=== PATIENT | female | born 1985 | race Caucasian/White ===

== ENCOUNTER → 2016-11-18 | Outpatient (CLI) | payer BC ==
[2016-11-18 11:27] LABS: BASOPHILS # (AUTO) 0.02 10*3/UL; BASOPHILS % (AUTO) 0.2 % (0-1); EOSINOPHILS % (AUTO) 1.1 % (0-8); HEMATOCRIT 37.2 % (37.0-47.0); IMM GRAN % (AUTO) 0.1 % (0-5); IMM GRAN# (AUTO) 0.01 10*3/UL; LYMPHOCYTES % (AUTO) 21.1 % (10-50); MEAN CORPUSCULAR HEMOGLOBIN 29.9 PG (27-31); MEAN CORPUSCULAR HGB CONC 34.9 g/dL (33-37); MEAN PLATELET VOLUME 9.4 FL (7.4-12.2); MONOCYTES # (AUTO) 0.64 10*3/UL (0.3-0.8); MONOCYTES % (AUTO) 6.8 % (5-15); NEUTROPHILS # (AUTO) 6.71 10*3/UL; NEUTROPHILS % (AUTO) 70.7 % (50-80); RDW COEFFICIENT OF VARIATION 12.7 % (11.5-14.5); RED BLOOD COUNT 4.35 10^6/uL (4.20-5.40); WHITE BLOOD COUNT 9.48 10^3/uL (4.8-10.8)
[2016-11-18 11:32] LABS: PLATELET MORPHOLOGY COMMENT NORMAL MORPHOLOGY (NORM); PRENATAL QUESTION YES (Y)
[2016-11-18 12:13] LABS: HIV ANTIBODY NEGATIVE (N); HIV-1 P24 ANTIGEN NEGATIVE (N)
[2016-11-18 13:32] LABS: IRON 156 UG/DL (37-170)
[2016-11-18 13:46] LABS: PERCENT IRON SATURATION 44 % (14-50)
[2016-11-19 12:44] LABS: HEP B SURFACE AG Negative (Negative)
[2016-11-19 13:46] LABS: RUBELLA IGG INDEX 4.2 (()); SYPHILIS IGG WITH REFLEX Negative (Negative)
== END ==
LOC: MOB LAB 10:11
PROVIDERS: ATTEND Family Medicine
DX: O99.011 Anemia complicating pregnancy, first trimester (principal); Z36 Encounter for antenatal screening of mother; Z3A.09 9 weeks gestation of pregnancy
CPT/HCPCS: 36415; 80081; 82728; 83540; 83550; 86900; 86901; 87088

== ENCOUNTER → 2016-11-19 | Outpatient (CLI) | payer BC ==
--- NOTE | 2016-11-19 12:16 | DI ---
OBSTETRICAL ULTRASOUND, 11/19/2016 11:11 AM: Clinical History: Verify dates. Previous Exam: None at this facility for this . LMP: 09/15/2016. There is a single live IUP currently in unstable position. Amnionic fluid content is normal. The plac enta is posterior and right lateral corpus and Grade 0. heart rate is 172 beats/minute and regu lar. The yolk sac and right ovary are normal. The left ovary was not visualized. CRL measurement is 2 6 mm. This measurement corresponds to an EGA value of 9 weeks 3 days. The US EDC is 06/21/2017. EDC by LMP is 06/22/2017. Readin. Single live fetus with unstable presentation and normal amniotic fluid content. The placenta is p osterior corpus and right lateral corpus and grade 0. 2. The composite EGA is 19 weeks 3 days with an ultrasound EDC of 06/21/2017.
== END ==
LOC: US 11:01
PROVIDERS: ATTEND Family Medicine
DX: Z36 Encounter for antenatal screening of mother (principal)
CPT/HCPCS: 76801

== ENCOUNTER → 2017-02-10 | Outpatient (CLI) | payer BC ==
--- NOTE | 2017-02-10 21:49 | DI ---
OBSTETRICAL ULTRASOUND, 02/10/2017 3:33 PM: Clinical History: Antepartum screening. Previous Exam: 11/19/2016. ADJUSTED DATE FROM EARLY OBUS: Unknown. There is a single live IUP currently in vertex presentation. Amnionic fluid content is normal. activity is observed as follows: cardiac and extremity. The placenta is anterior corpus and Grade 1. heart rate is 150 beats/minute and regular. There is a 3 vessel cord. The RVOT, LVOT and 4 michael ne heart view are normal. The aortic arch and descending aorta are normal. Views of the spine, face, and kidneys are unremarkable. BPD, HC, AC, and FL measurements are 47 mm, 191 mm, 159 mm, and 36 mm, respectively. These measurements correspond to EGA values of 20 weeks 2 days, 21 weeks 3 days, 21 weeks 1 day and 21 weeks 3 days, respectively. Composite EGA is 21 weeks 1 day The US EDC is 06/22. EDC by adjusted LMP is 06/21/2017. Readin. Single live fetus with vertex presentation and normal amniotic fluid content. Placenta is anterio r corpus and grade 1. 2. The composite EGA is 21 weeks one day with an ultrasound EDC of 06/22/2017. The EDC is 06/21/2017 b ased on the adjusted LMP date of 11/19/2016. 3. The antepartum screening evaluation is normal.
== END ==
LOC: US 15:30
PROVIDERS: ATTEND Family Medicine
DX: Z36 Encounter for antenatal screening of mother (principal); Z3A.21 21 weeks gestation of pregnancy
CPT/HCPCS: 76805

== ENCOUNTER → 2017-04-02 | Outpatient (CLI) | payer BC ==
[2017-04-02 09:07] LABS: HEMATOCRIT 37.6 % (37.0-47.0); HEMOGLOBIN 12.6 g/dL (12.0-16.0); MEAN CORPUSCULAR HEMOGLOBIN 29.4 PG (27-31); MEAN CORPUSCULAR HGB CONC 33.5 g/dL (33-37); MEAN CORPUSCULAR VOLUME 87.6 FL (81-99); MEAN PLATELET VOLUME 9.1 FL (7.4-12.2); RED BLOOD COUNT 4.29 10^6/uL (4.20-5.40)
== END ==
LOC: LAB 07:53
PROVIDERS: ATTEND Family Medicine
DX: Z36 Encounter for antenatal screening of mother (principal); Z3A.28 28 weeks gestation of pregnancy
CPT/HCPCS: 36415; 82950; 84443; 85027

== ENCOUNTER 2017-06-19 02:00 | Inpatient (IN) ==
[2017-06-19] MEDS ORDERED: Nalbuphine Inj 20 MG/ML Ampule IVP PRN ×3 (02:26→06:54)
[2017-06-19] MEDS ORDERED: CITRIC ACID/SODIUM CITRATE 30 ML CUP PO PRN (02:26)
[2017-06-19] MEDS ORDERED: BUTORPHANOL TARTRATE 2 MG/1 ML VIAL IVP PRN ×2 (02:26→04:03)
[2017-06-19] MEDS ORDERED: OXYTOCIN 10 UNIT/1 ML IM PRN (02:26)
[2017-06-19] MEDS ORDERED: Lidocaine 1% 10 MG/ML - 20 ML VIAL SUBCUT PRN (02:26)
[2017-06-19] MEDS ORDERED: NORMAL SALINE 10 ML SYRINGE FLUSH IVP PRN ×2 (02:26→06:54)
[2017-06-19] MEDS ORDERED: NALOXONE 0.4 MG/1 ML VIAL IVP PRN ×2 (02:26→04:03)
[2017-06-19] MEDS ORDERED: Metoclopramide Inj 10 MG/2 ML VIAL IV PRN (02:26)
[2017-06-19] MEDS ORDERED: Naloxone Inj 0.01 MG in Normal Saline Flush 1 ML IVP PRN ×2 (02:26→04:03)
[2017-06-19] MEDS ORDERED: Carboprost Inj 250 MCG/ML AMP IM PRN (02:26)
[2017-06-19] MEDS ORDERED: CALCIUM CARBONATE 500 MG (TUMS) CHEWABLE TABLET PO PRN ×2 (02:26→06:54)
[2017-06-19] MEDS ORDERED: LIDOCAINE W/ SODIUM BICARB 0.5 ML SYR SUBD PRN (02:26)
[2017-06-19] MEDS ORDERED: MISOPROSTOL 200 MCG TABLET RECTAL PRN (02:26)
[2017-06-19] MEDS ORDERED: CefOXitin Inj 2 GM in Sodium Chloride 0.9% 100 ML IV PRN (02:26)
[2017-06-19] MEDS ORDERED: diphenhydrAMINE 50 MG/1 ML VIAL IVP PRN ×3 (02:26→06:54)
[2017-06-19] MEDS ORDERED: METHYLERGONOVINE MALEATE 0.2 MG/1 ML VIAL IM PRN (02:26)
[2017-06-19] MEDS ORDERED: ONDANSETRON 4 MG/2 ML VIAL IVP PRN ×2 (02:26→06:54)
[2017-06-19] MEDS ORDERED: ePHEDrine Inj 5 MG in Normal Saline Flush 1 ML IVP PRN ×2 (02:26→04:03)
[2017-06-19] MEDS ORDERED: Famotidine Inj 20 MG in Normal Saline Flush 10 ML IVP PRN ×4 (02:26)
[2017-06-19] MEDS ORDERED: Phenylephrine Inj 50 MCG in Normal Saline Flush 0.5 ML IVP PRN ×2 (02:26→04:03)
[2017-06-19] MEDS ORDERED: TERBUTALINE SULFATE 1 MG/1 ML SDV SUBCUT PRN (02:26)
[2017-06-19] MEDS ORDERED: Oxytocin 20 Units + LR 20 UNIT/1,000 ML BAG IV SCH ×2 (02:30→06:54)
[2017-06-19] MEDS: Lactated Ringers-OB Dept 1,000 ML PRIMARY IV SCH ×3 (03:00→04:30)
[2017-06-19 03:12] LABS: Hematocrit [HCT] 34.7 % (37.0-47.0); Hemoglobin [HGB] 11.8 g/dL (12.0-16.0); MEAN CORPUSCULAR HEMOGLOBIN 29.7 PG (27-31); MEAN CORPUSCULAR VOLUME 87.4 FL (81-99); MEAN PLATELET VOLUME 9.9 FL (7.4-12.2); RED BLOOD COUNT 3.97 10^6/uL (4.20-5.40)
[2017-06-19] MEDS: fentaNYL Inj 100 MCG/2 ML VIAL IV PRN ×2 (03:18→03:33)
[2017-06-19] MEDS ORDERED: LIDOCAINE MPF 2% - 5 ML (20 MG/1 ML) ONE (03:50)
[2017-06-19] MEDS ORDERED: Oxytocin 20 Units + LR 20 UNIT/1,000 ML BAG IV ONE (04:09)
--- NOTE | 2017-06-19 04:51 | CRNA.PROCE ---
Central Neuraxis Block Placemt - - Safety Measures: Site Verified - - Type of Block: Epidural (Labor epidural. SROM @0130 at home. Reported to be clear. Reported to be 6 plus cm. Monitor reported to be reassuring. Contractions about every 2 minutes.) Reason for Block: Analgesia Moniters Used During Block: SPO2, NIBP Skin Prep Used: ChloroPrep (Twice) Draped: Yes Skin Infiltration - Enter Amount Used in Comment Field: 1% Xylocaine (mL): Yes ( 1.5 ml) Spinal Needle Used: 18 Hustead 80 mm (DAVID with saline. Epidural space times 1. Catheter threaded with transient parasthesia.) Number of Centimeters Catheter Threaded: 3 Bioclusive Dressing Applied: Yes (Skin prep under adhesive.) Anesthesia Time - Other Weight: 79.651 kg Height: 5 ft 5 in Body Mass Index (BMI): 29.2
--- NOTE | 2017-06-19 06:18 | CRNA.PROGR ---
Anesthesia Note - Progress Notes Anesthesia Progress Note: Delivered at 613. Pushed for a little less than 2 hours. Incremental dosing of Epidural worked okay. I was tense at end d/t 2 hours since last epidural dosing.
--- NOTE | 2017-06-19 06:21 | CRNA.PROGR ---
Anesthesia Time - - Start date: 06/19/17 End date: 06/19/17 - Procedure/Recovery Time Anesthesia : Time In: 03:30 Anesthesia : Time Out: 06:20 Anesthesia : Total Time: 170 - Total Anesthesia Time Total Anesthesia Time (minutes): 170 - Other Weight: 79.651 kg Height: 5 ft 5 in Body Mass Index (BMI): 29.2 Physical Status: P2 () Anesthesia Type: Epidural Obstetrics: Planned vaginal delivery w/ neuraxial labor anesthesia/analog
[2017-06-19] MEDS ORDERED: GLYCERIN/WITCH HAZEL 1 BOX TOPICAL PRN (06:54)
[2017-06-19] MEDS ORDERED: ACETAMINOPHEN 325 MG TABLET PO PRN (06:54)
[2017-06-19] MEDS ORDERED: HYDROcodone-APAP 5 MG -325 MG TABLET PO PRN (06:54)
[2017-06-19] MEDS ORDERED: Ondansetron ODT Tab 4 MG TAB PO PRN (06:54)
[2017-06-19] MEDS ORDERED: LANOLIN HPA 40 GM TUBE TOPICAL PRN (06:54)
[2017-06-19] MEDS ORDERED: diphenhydrAMINE 25 MG CAPSULE PO PRN (06:54)
[2017-06-19] MEDS ORDERED: BENZOCAINE/MENTHOL SPRAY 56 GM BOTTLE TOPICAL PRN (06:54)
[2017-06-19] MEDS ORDERED: DIPH,PERTUSS,TET(ADACEL) VAC/PF 0.5 ML (Tdap) IM ONE (06:54)
--- NOTE | 2017-06-19 09:40 | OB.DEL.SUM ---
Delivery Note Delivery Summary: Pt is a 32 yo G3 now P3, at 39 5/7 weeks by first trimester u/s, who presented this morning in active labor. She had SROM with clear fluid at home. She had an epidural placed for analgesia. She quickly progressed to complete/100/+1. She pushed well for a short period of time, but then started to make no progress. Baby's head was noted to be transverse. Pt was turned side to side and eventually her dosed epidural wore off enough that she was able to get on her hands and knees. She was eventually rolled over to her back again and baby's head was still acynclitic. After one more turn to her right side, baby's head was on the OA presentation. The pt pushed several more times and delivered a viable female over an intact perineum. All in all, the pt pushed off and on for almost 2 hours. Time of delivery was 0613. The nose and mouth were suctioned with a bulb suction and the cord was doubly clamped after 45 seconds by myself. It was cut by the father of the baby. Baby was vigorous and crying and was placed on mom's chest. Cord blood and cord gas were obtained for analysis. The placenta delivered spontaneously and intact at 0616. There was a 3 vessel cord. The vagina and perineum were examined and no lacerations were noted. EBL 200 cc. Apgars were 9 at 1 minute and 10 at 5 minutes. Baby weighed 7 #6oz and was 21 inches long. Both mom and baby tolerated delivery well and are in stable condition at this time.
[2017-06-19] MEDS: DOCUSATE 100 MG CAPSULE PO SCH ×2 (11:20→20:57)
[2017-06-19] MEDS: IBUPROFEN 800 MG TABLET PO PRN ×2 (11:29→21:00)
[2017-06-20 05:32] LABS: Hematocrit [HCT] 30.5 % (37.0-47.0); Hemoglobin [HGB] 10.1 g/dL (12.0-16.0); MEAN CORPUSCULAR HGB CONC 33.1 g/dL (33-37); MEAN CORPUSCULAR VOLUME 90.5 FL (81-99); MEAN PLATELET VOLUME 10.1 FL (7.4-12.2); RED BLOOD COUNT 3.37 10^6/uL (4.20-5.40)
[2017-06-20] MEDS: DOCUSATE 100 MG CAPSULE PO SCH (08:08)
[2017-06-20] MEDS: IBUPROFEN 800 MG TABLET PO PRN (08:08)
[2017-06-20 08:23] VITALS: BP 109/48; RESP 16; TEMP 98.4; O2SAT 100
--- NOTE | 2017-06-20 08:45 | OB.PROGRES ---
Subjective Post Op Day: 1 Pain Management: PO Diaz Catheter: No Flatus: Yes Diet: Regular Feeding Method: Exculsively Ambulating: No Objective General: lying in bed, in NAD CardioVascular: RRR with no m/r/g. Respiratory: CTAB, no crackles or wheezing. Bowel Sounds: Present Extremities: Negative Chacha's - Bilaterally Assesstment / Plan (1) Status post vaginal delivery Current Visit: Yes Status: Acute Assessment / Plan: -routine cares. -rh positive. -rubella immune. -breast feeding going well. -d/c home this morning.
[2017-06-20] MEDS ORDERED: Prenatal Multivitamin Tab 1 TAB TAB PO SCH (09:00)
== END 2017-06-20 09:30 | disposition home or self-care (01) | DRG 775 ==
LOC: OBIP 02:06
PROVIDERS: ADMIT Family Medicine; ATTEND Family Medicine